=== PATIENT | male | born 1945 | race Caucasian/White ===

== ENCOUNTER → 2016-04-11 | Day surgery (SDC) | payer OTHER ==
[~2016-04-11] VITALS: Ht 177.8 cm; Wt 88.9 kg
[~2016-04-11] MED LIST: ACET1CAP18 PO; ACET500C PO; ACETAMINOPHEN 325MG/HYDROcodone 7.5MG/15ML UDC PO PRN; ALPR.25 PO; ALPR0.25 PO; AMPICILLIN/SULBAC 3 GM/NS 100 ML IV PRN; ANDR1.62 TOPICAL; ASPI-110 PO; ASPI325T PO; CENTTAB PO; CEPH-460 PO; DO NOT ADM ANY ANTICOAGULANT DRUGS XX PRN; HYDR1ELX PO; INSULIN HUMAN REGULAR 1,000 UNITS/10 ML VIAL SQ PRN; LACTATED RINGER'S 1000 ML INJ 1,000 ML IV SCH; LACTATED RINGER'S 1000 ML IV SCH; LEVA500T PO; LORA1TAB12 PO; METOPROLOL TARTRATE 25 MG TAB PO PRN; MULT-6 PO; NEXI20CA PO; OMEP10CA PO; ONDANSETRON HCL 4 MG/2 ML VIAL IV PUSH ONE; OXYC1CAP PO; PRIL10CA PO; PROC10TA PO; PROP10TA6 PO; PROPOFOL 200 MG/20 ML AMP IV ONE; REST15CA PO; SODIUM CHLORID 0.9% 500 ML IV SCH; ZOFR4TAB PO; fentaNYL CITRATE 250 MCG/5 ML AMP ONE
[2016-04-11 06:30] VITALS: BP 138/81; PULSE 59; RESP 20; TEMP 98.1; O2SAT 99
[2016-04-11 10:00] VITALS: BP 149/86; PULSE 59; RESP 18; O2SAT 97
--- NOTE | 2016-04-11 14:00 | EKG ---
Date Performed: 04/11/2016 Time Performed: 06:53:33 PTAGE: 70 years EKG: Sinus rhythm NORMAL ECG Since PREVIOUS TRACING , no significant change noted PREVIOUS TRACIN03/10/2014 02.53 DOCTOR: Jerzy Pina Interpretating Date/Time 04/11/2016 13:56:46
--- NOTE | 2016-04-26 14:45 | MP ---
cc: VALERIE APRISI M.D. DATE OF SURGERY 04/11/[address] Valerie parisi PREOPERATIVE DIAGNOSIS Metastatic squamous cell carcinoma right neck. POSTOPERATIVE DIAGNOSIS Metastatic squamous cell carcinoma right neck. OPERATION PERFORMED Examination under anesthesia with direct laryngoscopy and biopsies of hypo and oropharynx. DESCRIPTION OF OPERATION The patient was taken to OR #6 and placed in the supine position. Following induction of general anesthesia and intubation, a shoulder roll and a Charles head drape and a dental guard were put in place. The oropharynx and oral cavity were examined visually and palpated bimanually. There was no evidence of gross lesions involving the aerodigestive tract. A direct laryngoscope was then advanced into the hypopharynx and the larynx was examined. There were no gross lesions in the larynx. Biopsies were obtained from the base of tongue bilaterally and also from the tonsil tissue bilaterally. A total of four biopsies were obtained. These were passed off the field separately labeled for their locations for histologic examination. The scope was then removed and the procedure was terminated. The patient was reversed from anesthesia and taken to recovery in good condition. There were no complications. Blood loss was 10 mL. MD RADHA Read/ABDIRIZAK /10:53 AM /2:45 PM
--- NOTE | 2016-04-26 14:49 | MP ---
cc: VALERIE PARISI M.D. DATE OF SURGERY 04/11/[address] 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 OPERATION PERFORMED 1. Direct laryngoscopy with biopsies. 2. Needle aspiration biopsy of left neck mass x2. INDICATIONS As documented in the history and physical. DESCRIPTION OF OPERATION The patient was taken to OR #8 and placed in the supine position. Following induction of general anesthesia and intubation, a shoulder roll, a Charles head drape were put in place in a dental guard was put in place. The oral cavity was examined visually and was palpated bimanually in the floor of mouth, soft palate, hard palate and oropharynx area. There were no masses detected. Then using a direct laryngoscope, the hypopharynx and larynx were examined. There was no evidence of mucosal lesions involving these areas. The scope was then removed and then using a 10 mL syringe and 22 gauge needle, fine needle aspiration biopsies were obtained from the mass in the left neck. These were dried on slides and then were submitted for histologic examination. The procedure was terminated. The patient was reversed from anesthesia and taken to recovery in good condition. There were no complications. Blood loss less than 5 mL. MD RADHA Read/ABDIRIZAK /11:20 AM /2:47 PM
== END | disposition home or self-care (01) ==
LOC: HSDC 06:05
PROVIDERS: ATTEND Otolaryngology
DX: C10.9 Malignant neoplasm of oropharynx, unspecified (principal); Z01.810 Encounter for preprocedural cardiovascular examination
CPT/HCPCS: 00320; 31535; 88304; 88305; 88341; 93005; J0295; J2405; J3010; J7120

== ENCOUNTER → 2016-04-12 | Outpatient (CLI) | payer OTHER ==
[~2016-04-12] MED LIST changes: -ACETAMINOPHEN 325MG/HYDROcodone 7.5MG/15ML UDC PO PRN; -AMPICILLIN/SULBAC 3 GM/NS 100 ML IV PRN; -DO NOT ADM ANY ANTICOAGULANT DRUGS XX PRN; -INSULIN HUMAN REGULAR 1,000 UNITS/10 ML VIAL SQ PRN; -LACTATED RINGER'S 1000 ML INJ 1,000 ML IV SCH; -LACTATED RINGER'S 1000 ML IV SCH; -METOPROLOL TARTRATE 25 MG TAB PO PRN; -ONDANSETRON HCL 4 MG/2 ML VIAL IV PUSH ONE; -PROPOFOL 200 MG/20 ML AMP IV ONE; -SODIUM CHLORID 0.9% 500 ML IV SCH; -fentaNYL CITRATE 250 MCG/5 ML AMP ONE
[2016-04-12 13:35] LABS: AUTOMATED NEUTROPHIL # 5.6 TH/MM3 (1.8-7.7); BASOPHIL % 0.4 % (0.0-2.0); EOSINOPHIL # 0.1 TH/MM3 (0-0.4); HEMATOCRIT 40.4 % (39.0-51.0); HEMO FLAGS DIFF FINAL; LYMPH % 23.8 % (9.0-44.0); MEAN CELL VOLUME 89.3 FL (80.0-100.0); MEAN CORPUSCULAR HEMOGLOBIN 31.1 PG (27.0-34.0); MEAN CORPUSCULAR HGB CONC 34.8 % (32.0-36.0); MONO % 7.4 % (0.0-8.0); NEUT % 67.4 % (16.0-70.0); PLATELET COUNT 253 TH/MM3 (150-450); RED BLOOD COUNT 4.53 MIL/MM3 (4.50-5.90); RED CELL DISTRIBUTION WIDTH 12.4 % (11.6-17.2); WHITE BLOOD COUNT 8.3 TH/MM3 (4.0-11.0)
[2016-04-12 13:43] LABS: PROTHROMBIN TIME - PATIENT 10.9 SEC (9.8-11.6)
== END ==
LOC: CLAB 13:16
PROVIDERS: ATTEND Internal Medicine Gastroenterology
DX: Z12.11 Encounter for screening for malignant neoplasm of colon (principal)
CPT/HCPCS: 36415; 85025; 85610

== ENCOUNTER → 2016-04-14 | Outpatient (CLI) | payer OTHER ==
[~2016-04-14] VITALS: Ht 179.1 cm; Wt 87.0 kg
[~2016-04-14] MED LIST changes: +HYDROmorphone HCL PF 2 MG/ML VIAL IV PUSH ONE; +INSULIN HUMAN REGULAR 1,000 UNITS/10 ML VIAL SQ PRN; +LACTATED RINGER'S 1000 ML IV SCH; +METOPROLOL TARTRATE 25 MG TAB PO PRN; +PROPOFOL 200 MG/20 ML AMP IV ONE; +SODIUM CHLORID 0.9% 500 ML IV SCH; +ceFAZolin INJ 1,000 MG VIAL IV ONE
[2016-04-14 09:58] VITALS: BP 149/82; PULSE 78; RESP 16; TEMP 98.3; O2SAT 97
[2016-04-14 12:50] VITALS: BP 135/68; PULSE 83; RESP 16; O2SAT 99
--- NOTE | 2016-04-15 21:25 | MR ---
cc: FROYLAN VINES DATE: 04/14/2016. PROCEDURES PERFORMED: 1. Upper endoscopy with PEG-tube placement. 2. Colonoscopy. DATE OF : 1945. ENDOSCOPIST: Froylan Vines MD. INDICATIONS FOR THE PROCEDURE: Patient with a recent diagnosis of squamous cancer with a lymph node biopsy in the right neck region. Apparently he has a tonsillar lesion as well that was discovered. 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 Upper endoscopy is being performed for reevaluation of Chavez's and also for PEG-tube placement for anticipated radiation therapy and anticipated difficulty with swallowing in the future. In addition, the patient also will undergo colonoscopy screening for apparent average risk. Photographs were taken. Biopsies were taken. PREMEDICATION: Administered by anesthesiology. MONITORING: Monitoring was accomplished with pulse oximeter, EKG, and blood pressure monitor. DESCRIPTION OF THE PROCEDURE IN DETAIL: After informed consent was obtained and the procedure risks and benefits were explained including the risk of bleeding, sepsis, perforation, risks of anesthesia, the patient was placed in the supine position. The video endoscope was inserted per the oral route into the esophagus easily. There was some slight posterior pharyngeal erythema. The esophagus itself through the main body appeared to be normal. At the distal EG junction, there was evidence of very short segment Chavez's esophagus without any mass lesions. This was biopsied several times. There was a very small hiatal hernia. The scope was passed into the stomach. On the retroflexed view, I could not appreciate any masses. The patient did have scattered small gastric polyps noted proximally and in the gastric body, the largest one was about 6 mm and it was successfully snared by cold technique and retrieved. The antrum was free of pathology. The pylorus was patent. The first, second and third portion of the duodenum were unremarkable. Using nursing assistance, the patient's abdominal area was prepped with Betadine in a sterile fashion. An adequate location for PEG-tube placement was seen by transillumination of the light source and palpation. Lidocaine 1% was injected through the site and a small incision was made and a PEG-tube was successfully placed in the usual fashion using the appropriate PEG-tube application device. Post insertion, the interior bumper appeared to be in good position in the mid gastric body. The scope was then gradually withdrawn and the patient was repositioned and colonoscopy was performed. The video colonoscope was inserted in the rectum and passed to the cecum in the usual fashion with abdominal pressure. Preparation was excellent. Colon extraction time was greater than 6 minutes. The cecum was unremarkable. At the ileocecal valve, there appeared to be perhaps a small raised area and perhaps a small polyp and this was biopsied off and removed. In the transverse colon, another small polyp 4 to 5 mm was biopsied off and removed. Diverticulosis was noted in the descending sigmoid colon of a mild to moderate degree. In the sigmoid colon two further polyps, both 4 mm, were also biopsied off and removed. In the rectum, the scope was retroflexed and small internal hemorrhoids were noted. The patient tolerated procedure well. He was sent to the recovery room in stable condition. IMPRESSION: 1. 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 2. Small hiatal hernia. 3. Gastric polyp removed by snare technique. 4. Status post the successful PEG-tube placement as outlined above. 5. Colonoscopy was performed to the cecum with removal of small polyps by biopsy technique as outlined above. 6. Diverticulosis was also noted in the descending sigmoid colon. 7. Small internal hemorrhoids were also seen. PLAN: I have discussed the findings with the patient's . The patient can resume oral feedings. I have recommended continuation of his antibiotic ointment of choice to the PEG-tube site and flushing this daily, keeping the area clean. Recommend follow up biopsies of the esophagus and of the colonic polyps removed. If these are adenomatous polyps, recommend repeat colonoscopy in five years. Continue acid suppressive therapy. MD SYLVIA Seals/PETER /12:24 PM /9:12 PM
== END ==
LOC: HEND 09:14
PROVIDERS: ATTEND Internal Medicine Gastroenterology
DX: Z12.11 Encounter for screening for malignant neoplasm of colon (principal); Z86.010 Personal history of colon polyps; D12.3 Benign neoplasm of transverse colon; K63.5 Polyp of colon; K57.30 Diverticulosis of large intestine without perforation or abscess without bleeding; K64.8 Other hemorrhoids; R13.10 Dysphagia, unspecified; C01 Malignant neoplasm of base of tongue; K22.710 Barrett's esophagus with low grade dysplasia; K31.7 Polyp of stomach and duodenum; K44.9 Diaphragmatic hernia without obstruction or gangrene
CPT/HCPCS: 00810; 43239; 43246; 45380; 88305; 88312; J0690; J1170

== ENCOUNTER 2016-04-18 08:22 | Day surgery (SDC) | payer OTHER ==
[~2016-04-18] VITALS: Ht 180.3 cm; Wt 86.8 kg
[~2016-04-18 08:22] MED LIST changes: -ACET1CAP18 PO; -ALPR.25 PO; -ANDR1.62 TOPICAL; -ASPI-110 PO; -CENTTAB PO; -CEPH-460 PO; -HYDR1ELX PO; -HYDROmorphone HCL PF 2 MG/ML VIAL IV PUSH ONE; -INSULIN HUMAN REGULAR 1,000 UNITS/10 ML VIAL SQ PRN; -LACTATED RINGER'S 1000 ML IV SCH; -LEVA500T PO; -LORA1TAB12 PO; -METOPROLOL TARTRATE 25 MG TAB PO PRN; -NEXI20CA PO; -OXYC1CAP PO; -PRIL10CA PO; -PROC10TA PO; -PROPOFOL 200 MG/20 ML AMP IV ONE; -SODIUM CHLORID 0.9% 500 ML IV SCH; -ZOFR4TAB PO; -ceFAZolin INJ 1,000 MG VIAL IV ONE
[2016-04-18 08:40] VITALS: BP 160/92; PULSE 70; RESP 20; TEMP 97.5; O2SAT 97
[2016-04-18] MEDS ORDERED: CHLORHEXIDINE GLUCONATE 2 % 1 PACK (2 CLOTHS) TOPICAL SCH (08:45)
[2016-04-18] MEDS ORDERED: POVIDONE IODINE 5% (ANTISEPSIS KIT) 4 APPLICATIONS EACH NARE SCH (08:45)
[2016-04-18] MEDS ORDERED: VANCOMYCIN 1000 MG/NS 250 ML - implanted port/tunneled catheter IV SCH ×2 (08:45)
[2016-04-18] MEDS ORDERED: ceFAZolin 2 GM PREMIX 50 ML - implanted port/tunneled catheter insertion IV SCH (08:45)
[2016-04-18] MEDS ORDERED: ALPR.25 PO (08:46)
[2016-04-18] MEDS ORDERED: ANDR1.62 TOPICAL (08:46)
[2016-04-18] MEDS ORDERED: CENTTAB PO (08:46)
[2016-04-18] MEDS ORDERED: ACET1CAP18 PO (08:46)
[2016-04-18] MEDS ORDERED: REST15CA PO (08:46)
[2016-04-18] MEDS ORDERED: MIDAZOLAM HCL 5 MG/5 ML VIAL ONE (09:30)
[2016-04-18] MEDS ORDERED: fentaNYL CITRATE 250 MCG/5 ML AMP ONE (09:30)
[2016-04-18] MEDS ORDERED: LIDOCAINE 1%/EPINEPHrine 1:100,000 SOLN 20 ML VIAL ONE (09:41)
[2016-04-18] MEDS ORDERED: SODIUM CHLORIDE 0.9% FLUSH 5 ML FLUSH IVF PRN (11:15)
--- NOTE | 2016-04-18 11:16 | PD.RAD ---
Post Procedure Progress Note Pre Procedure Diagnosis: (1) Mass of right side of neck Post Procedure Diagnosis: (1) Mass of right side of neck Procedure Date: Apr 18, 2016 Supervising Radiologist: Vel Douglas Proceduralist/Assist: Samira Pavon, RT(R)(), Regine Angel RT(R)() Anesthesia: Conscious Sedation Plan of Activity Patient to Unit: [facility] Patient Condition: Good See PACS Report for procedural detail/treatment Central Venous Access Device Procedure 1 Right Internal Jugular Infusaport Placement single lumen Vel Douglas MD Apr 18, 2016 11:16
--- NOTE | 2016-04-18 11:46 | RADRPT ---
EXAM DATE/TIME: 04/18/2016 09:59 [facility] COMPARISON: No previous studies available for comparison. INDICATIONS : Patient is in need of placement of an Infusaport for chemotherapy treatment of squamous cell head and neck cancer. MEDICAL HISTORY : History of right neck mass, HTN, tachycardia, tremors, kidney stones, Chavez's esophagus, CVA, heart valve disease, irregular heartbeat. SURGICAL HISTORY : History of tongue biopsy, right neck biopsy, colonoscopy, cholecystectomy, tonsillectomy. ENCOUNTER: Initial ACUITY: 3 weeks PAIN SCORE: 0/10 FLUORO TIME: 0.5 minutes SEDATION TIME: 30 minutes ACCESS: Right internal jugular vein SEDATION: 1.) 4 midazolam (Versed) IV 2.) 200 fentanyl (Sublimaze) IV Prophylactic antibiotics were administered with appropriate pre-procedure timing. Vancomycin within 2 hours of procedure, Ancef (or alternative) within 1 hour of procedure. DEVICE: 1. 8 Belgian Bard Power Port PROCEDURE : 1. Continuous pulse oximetry and EKG monitoring. 2. Intravenous conscious sedation. 3. Ultrasound guidance for venous access. 4. Fluoroscopic guided implantable central venous port placement. The patient was placed supine. The neck was prepped in sterile fashion. Full sterile technique was u sed, including cap, mask, sterile gloves and gown, and a large sterile sheet. Hand hygiene and 2% ch lorhexidine Betadine was utilized per protocol for cutaneous antisepsis with appropriate dry time for site. The skin and subcutaneous tissues were infiltrated with local anesthetic solution. Under direct ultrasound guidance, central venous access was accomplished in the targeted vessel. The ultrasound images depicting access guidance were stored and saved to PACS for permanent record. A s ubcutaneous pocket was created using blunt dissection. The port was introduced to the pocket. The c atheter tubing was fed through a subcutaneous tunnel to the venotomy site. The catheter tubing was c ut to a suitable length and then was introduced through a valved Peel-Away sheath and positioned with catheter tubing tip at the cavo-atrial junction level. The pocket incision was closed with subcutic ular Vicryl suture. Steri-Strips were applied. The port was flushed and locked with heparin solutio n per protocol. Sterile dressing was applied to the site. The patient tolerated the procedure well. Conscious sedation was performed with the prescribed dosages and duration as above. The patient mario alberto ated the procedure well and there were no complications. EKG and oximetry remained stable throughout the procedure. The patient was sent to post anesthesia recovery in stable condition. CONCLUSION: Uncomplicated ultrasound and fluoroscopic guided implanted central venous port catheter placement as described in detail above. An 8 Belgian Power port was placed. Vel Douglas MD on April 18, 2016 at 11:45 Board Certified Radiologist. This report was verified electronically.
[2016-04-18 12:00] VITALS: BP 113/65; PULSE 66; RESP 18; O2SAT 95
[2016-04-18 12:30] VITALS: BP 119/62; PULSE 63; RESP 18; O2SAT 95
== END 2016-04-18 12:55 | disposition home or self-care (01) ==
LOC: HROP 08:22 → HRIP 08:23 → HROP 12:55
PROVIDERS: ATTEND Internal Medicine Hematology & Oncology
DX: Z45.2 Encounter for adjustment and management of vascular access device (principal); R22.1 Localized swelling, mass and lump, neck; I10 Essential (primary) hypertension; Z86.73 Personal history of transient ischemic attack (TIA), and cerebral infarction without residual deficits; Z87.442 Personal history of urinary calculi
CPT/HCPCS: 36561; 76937; 77001; 99152; 99153; C1788; J0690; J1642; J2250; J3010; J3370; J7050

== ENCOUNTER 2016-06-15 15:10 | Emergency (ER) | payer OTHER ==
[~2016-06-15] VITALS: Ht 180.3 cm; Wt 80.0 kg
[~2016-06-15 15:10] MED LIST changes: +ACET1CAP18 PO; +ALPR.25 PO; +ANDR1.62 TOPICAL; +CENTTAB PO
[2016-06-15 15:12] VITALS: BP 129/76; PULSE 90; RESP 20; TEMP 98.2; O2SAT 99
--- NOTE | 2016-06-15 15:27 | PD ---
HPI Chief Complaint: Flank/Kidney Pain Time Seen by Provider: 15:27 Travel History International Travel<30 days: No Contact w/Intl Traveler<30days: No Traveled to known affect area: No History of Present Illness HPI 71-year-old male presents to emergency Department with 10 day history of left lower back and flank pain. Patient has significant history of tonsillar and throat cancer being followed by oncology. Patient reports a fever 101 4 days prior to this visit, treated with Levaquin by his oncologist. Patient continues to have worsening pain in this left flank area, and was requested to come here for further evaluation and treatment. Patient has not had a fever since starting the Levaquin 4 days prior to this. Patient takes nothing by mouth, only through a G-tube. He states no changes in his urine output or burning with urination. He does denies changes in his bowels. Patient has no other acute complaints. Patient has not taken any pain medication today, although he has oxycodone at home. Patient is not requesting pain medication at this time. He states his pain is 7/10 and worse with movement. Patient is currently under the care of [facility], and currently undergoing chemotherapy. He is allergic to latex and Wellbutrin. The patient has a port in his right upper chest pain PFSH Past Medical History Anxiety: Yes Depression: Yes Heart Rhythm Problems: Yes (TACHYCARDIA ) Cancer: Yes (METASTACTIC SQUAMOUS BASE OF TONGUE WITH PAPO TO LYMPH NODES) Cardiovascular Problems: Yes (ARRHYTHMIA, VALVE REGURGETATION) High Cholesterol: Yes Chemotherapy: Yes (NECK CANCER/ LAST SUNDAY CHEMO TX) Diabetes: No Diminished Hearing: No Endocrine: No Gastrointestinal Disorders: Yes (CHOLECYSTITIS) GERD: Yes Genitourinary: No Hepatitis: No Hiatal Hernia: Yes Hypertension: Yes Immune Disorder: No Kidney Stones: Yes Musculoskeletal: Yes (BILATERAL KNEE INJURIES/PAIN) Neurologic: Yes (TREMORS NOW RESOLVED) Psychiatric: Yes (DEPRESSION) Reproductive: No Respiratory: Yes (CHRONIC DRY COUGH) Immunizations Current: Yes Thyroid Disease: No Past Surgical History Abdominal Surgery: No AICD: No Cardiac Surgery: No Cholecystectomy: Yes Ear Surgery: No Endocrine Surgery: No Eye Surgery: No Genitourinary Surgery: No Gynecologic Surgery: No Joint Replacement: No Oral Surgery: Yes (TONSILLECTOMY) Pacemaker: No Thoracic Surgery: No Social History Alcohol Use: Yes (SOCIAL ) Tobacco Use: No Substance Use: No Allergies-Medications (Allergen,Severity, Reaction): Coded Allergies: Spiriva (Verified Allergy, Severe, Shortness of Breath, 06/15/16) Wellbutrin (Verified Allergy, Severe, Seizures, 06/15/16) Latex (Verified Allergy, Mild, EDEMA REDNESS HANDS, 06/15/16) Reported Meds & Prescriptions Reported Meds & Active Scripts Active Reported Tylenol (Acetaminophen) 325 Mg Cap 650 Mg PO Q6H PRN Xanax (Alprazolam) 0.25 Mg Tab 0.25 Mg PO Q4H PRN Restoril (Temazepam) 15 Mg Cap 15 Mg PO HS PRN Androgel Pump Topical (Testosterone) 1.62 % Gel 20.25 Mg TOPICAL DAILY Centrum Silver (Multiple Vitamins W/ Minerals) 1 Tab 1 Tab PO DAILY Omeprazole 10 Mg Cap 10 Mg PO DAILY Acetaminophen 500 Mg Cap 500 Mg PO Q4-6H PRN Centrum (Multiple Vitamins W/ Minerals) 1 Tab 1 Tab PO DAILY Restoril (Temazepam) 15 Mg Cap 15-30 Mg PO HS PRN Propranolol (Propranolol HCl) 10 Mg Tab 5 Mg PO BID Aspirin 325 Mg Tab 325 Mg PO DAILY Alprazolam 0.25 Mg Tab 0.25 Mg PO HS PRN Review of Systems Except as stated in HPI: all other systems reviewed are Neg General / Constitutional: No: Fever Eyes: No: Visual changes HENT: No: Headaches Cardiovascular: No: Chest Pain or Discomfort Respiratory: No: Shortness of Breath Gastrointestinal: No: Abdominal Pain Genitourinary: Positive: Flank Pain, No: Dysuria Musculoskeletal: No: Pain Skin: No Rash Neurologic: No: Weakness Psychiatric: No: Depression Endocrine: No: Polydipsia Hematologic/Lymphatic: No: Easy Bruising Physical Exam Narrative GENERAL: Patient appears in mild distress. SKIN: Warm and dry. Normal color. Normal turgor. HEAD: Atraumatic. Normocephalic. EYES: Pupils equal and round. No scleral icterus. No injection or drainage. ENT: No nasal bleeding or discharge. Mucous membranes pink and moist. Pharynx is clear. NECK: Trachea midline. Neck is supple. CARDIOVASCULAR: Regular rate and rhythm. RESPIRATORY: No accessory muscle use. Clear to auscultation. Breath sounds equal bilaterally. GASTROINTESTINAL: Abdomen soft, non-tender, nondistended. Hepatic and splenic margins not palpable. MUSCULOSKELETAL: Extremities without clubbing, cyanosis, or edema. No obvious deformities. NEUROLOGICAL: Awake and alert. No obvious cranial nerve deficits. Motor grossly within normal limits. Five out of 5 muscle strength in the arms and legs. Normal speech. PSYCHIATRIC: Appropriate mood and affect; insight and judgment normal. Data Data Last Documented VS Vital Signs Date Time Temp Pulse Resp B/P Pulse Ox O2 Delivery O2 Flow Rate FiO2 06/15/16 17:35 80 16 124/67 97 Room Air 06/15/16 15:12 98.2 Orders Complete Blood Count With Diff (06/15/16 15:31) Comprehensive Metabolic Panel (06/15/16 15:31) Lipase (06/15/16 15:31) Prothrombin Time / Inr (Pt) (06/15/16 15:31) Act Partial Throm Time (Ptt) (06/15/16 15:31) Urinalysis - C+S If Indicated (06/15/16 15:31) Ct Abd/Pel W/O Iv Contrast (06/15/16 15:31) Iv Access Insert/Monitor (06/15/16 15:31) Ecg Monitoring (06/15/16 15:31) Oximetry (06/15/16 15:31) NPO (06/15/16 15:31) Sodium Chlor 0.9% 1000 Ml Inj (Ns 1000 M (06/15/16 15:31) Sodium Chloride 0.9% Flush (Ns Flush) (06/15/16 15:45) Labs Laboratory Tests Test 06/15/16 06/15/16 15:55 16:55 White Blood Count 2.2 TH/MM3 Red Blood Count 3.55 MIL/MM3 Hemoglobin 11.1 GM/DL Hematocrit 32.5 % Mean Corpuscular Volume 91.6 FL Mean Corpuscular Hemoglobin 31.4 PG Mean Corpuscular Hemoglobin 34.3 % Concent Red Cell Distribution Width 15.2 % Platelet Count 286 TH/MM3 Mean Platelet Volume 6.1 FL Neutrophils (%) (Auto) 75.6 % Lymphocytes (%) (Auto) 7.7 % Monocytes (%) (Auto) 16.2 % Eosinophils (%) (Auto) 0.2 % Basophils (%) (Auto) 0.3 % Neutrophils # (Auto) 1.7 TH/MM3 Lymphocytes # (Auto) 0.2 TH/MM3 Monocytes # (Auto) 0.4 TH/MM3 Eosinophils # (Auto) 0.0 TH/MM3 Basophils # (Auto) 0.0 TH/MM3 CBC Comment DIFF FINAL Differential Comment Sodium Level 139 MEQ/L Potassium Level 4.1 MEQ/L Chloride Level 102 MEQ/L Carbon Dioxide Level 30.3 MEQ/L Anion Gap 7 MEQ/L Blood Urea Nitrogen 18 MG/DL Creatinine 1.08 MG/DL Estimat Glomerular Filtration 67 ML/MIN Rate Random Glucose 102 MG/DL Calcium Level 9.5 MG/DL Total Bilirubin 0.5 MG/DL Aspartate Amino Transf 14 U/L (AST/SGOT) Alanine Aminotransferase 26 U/L (ALT/SGPT) Alkaline Phosphatase 74 U/L Total Protein 7.1 GM/DL Albumin 3.5 GM/DL Lipase 137 U/L Urine Color YELLOW Urine Turbidity CLEAR Urine pH 6.5 Urine Specific Home 1.023 Urine Protein TRACE mg/dL Urine Glucose (UA) NEG mg/dL Urine Ketones NEG mg/dL Urine Occult Blood NEG Urine Nitrite NEG Urine Bilirubin NEG Urine Urobilinogen LESS THAN 2.0 MG/DL Urine Leukocyte Esterase NEG Urine RBC LESS THAN 1 /hpf Urine WBC 1 /hpf Urine Squamous Epithelial <1 /hpf Cells Urine Hyaline Casts 1 /lpf Urine Mucus MANY /lpf Microscopic Urinalysis Comment CULT NOT INDICATED MDM Medical Decision Making Medical Screen Exam Complete: Yes Emergency Medical Condition: Yes Differential Diagnosis Left flank pain. Lumbar pain. Muscle skeletal pain. Renal colic. Possible kidney stone. Possible urinary tract infection. Narrative Course Patient is medically stable at time of exam. Patient's port is accessed and labs are obtained including CBC, CMP, lipase, PT PTT and INR, and urinalysis. CT of the abdomen and pelvis is ordered without contrast. Patient is not requesting pain medication at this time. CT shows gastrostomy tube in good position. Radiologist does not see any specific etiology for the patient's flank pain. There are no stones identified. CBC shows white blood cell count of 2.2, RBC is 3.55, hemoglobin of 11.1, hematocrit of 32.5. This is consistent with the patient's chemotherapy history. Urinalysis shows no acute process. CMP was within normal limits. Patient is felt stable to be discharged home. Results were discussed with the patient and he feels reassured. Patient is discharged home and can take his home pain medication as needed. Patient will follow with his oncologist and primary care physician as needed. Diagnosis Primary Impression: Lumbago without sciatica Qualified Code: M54.5 - Acute left-sided low back pain without sciatica Referrals: Oncologist Primary Care Physician Patient Instructions: Acute Low Back Pain (ED), General Instructions, Lower Back Exercises (ED) Additional Instructions: CT shows gastrostomy tube in good position. Radiologist does not see any specific etiology for the patient's flank pain. There are no stones identified. CBC shows white blood cell count of 2.2, RBC is 3.55, hemoglobin of 11.1, hematocrit of 32.5. This is consistent with the patient's chemotherapy history. Urinalysis shows no acute process. CMP was within normal limits. Patient is felt stable to be discharged home. Results were discussed with the patient and he feels reassured. Patient is discharged home and can take his home pain medication as needed. Patient will follow with his oncologist and primary care physician as needed. Med/Other Pt SpecificInfo: No Change to Meds Disposition: 01 DISCHARGE HOME Condition: Stable [place] Jun 15, 2016 15:27
[2016-06-15] MEDS ORDERED: SODIUM CHLOR 0.9% 1000 ML INJ 1,000 ML IV SCH (15:31)
[2016-06-15 15:43] VITALS: O2SAT 99
[2016-06-15] MEDS ORDERED: SODIUM CHLORIDE 0.9% FLUSH 5 ML FLUSH IVF PRN (15:45)
--- NOTE | 2016-06-15 16:29 | RADRPT ---
EXAM DATE/TIME: 06/15/2016 16:02 [facility] COMPARISON: No previous studies available for comparison. INDICATIONS : Left lower flank pain with history of G-tube and throat cancer. ORAL CONTRAST: No oral contrast ingested. RADIATION DOSE: 8.21 CTDIvol (mGy) MEDICAL HISTORY : Cardiovascular disease. Hypertension. Renal calculi. Throat cancer SURGICAL HISTORY : Cholecystectomy. G-tube ENCOUNTER: Initial ACUITY: 1 day PAIN SCALE: 4/10 LOCATION: Left flank TECHNIQUE: Volumetric scanning of the abdomen and pelvis was performed. Using automated exposure control and adjustment of the mA and/or kV according to patient size, radiation dose was kept as low as reasonably achievable to obtain optimal diagnostic quality images. FINDINGS: The lung bases are clear. G-tube is noted. The liver and spleen are unremarkable. Gal lstone is seen in the gallbladder. Pancreas appears normal. Right and left kidneys are grossly unremarkable. Region of the cecum and terminal ileum are unremarkable. In the pelvis, there are diverticula in the sigmoid colon without diverticulitis. Bladder is unremarkable. CONCLUSION: 1. Gastrostomy tube in good position. 2. I do not see etiology for the patient's flank pain. There are no stones identified. Zev Pollock MD FACR on June 15, 2016 at 16:22 Board Certified Radiologist. This report was verified electronically.
[2016-06-15 16:42] LABS: AUTOMATED NEUTROPHIL # 1.7 TH/MM3 (1.8-7.7); BASOPHIL % 0.3 % (0.0-2.0); EOSINOPHIL % 0.2 % (0.0-4.0); HEMATOCRIT 32.5 % (39.0-51.0); HEMO FLAGS DIFF FINAL; LYMPH % 7.7 % (9.0-44.0); LYMPHOCYTE # 0.2 TH/MM3 (1.0-4.8); MEAN CELL VOLUME 91.6 FL (80.0-100.0); MEAN CORPUSCULAR HEMOGLOBIN 31.4 PG (27.0-34.0); MEAN CORPUSCULAR HGB CONC 34.3 % (32.0-36.0); MONO % 16.2 % (0.0-8.0); NEUT % 75.6 % (16.0-70.0); PLATELET COUNT 286 TH/MM3 (150-450); RED BLOOD COUNT 3.55 MIL/MM3 (4.50-5.90); RED CELL DISTRIBUTION WIDTH 15.2 % (11.6-17.2); WHITE BLOOD COUNT 2.2 TH/MM3 (4.0-11.0)
[2016-06-15 17:00] LABS: ANION GAP 7 MEQ/L (5-15); AST (GOT) 14 U/L (15-37); BICARBONATE 30.3 MEQ/L (21.0-32.0); BLOOD UREA NITROGEN 18 MG/DL (7-18); CHLORIDE 102 MEQ/L (98-107); GLOMERULAR FILTRATION RATE 67 ML/MIN (>89); POTASSIUM 4.1 MEQ/L (3.5-5.1); SODIUM (NA) 139 MEQ/L (136-145)
[2016-06-15 17:07] LABS: ALKALINE PHOSPHATASE 74 U/L (45-117); ALT (GPT) 26 U/L (12-78); TOTAL BILIRUBIN ADULT 0.5 MG/DL (0.2-1.0)
[2016-06-15 17:22] LABS: BLOOD, URINE NEG (NEG); COMMENT (UR) CULT NOT INDICATED; CULTURE IF INDICATED CULT NOT INDICATED; GLUCOSE,URINE NEG (NEG); HYALINE CAST, URINE 1 /lpf (RARE); KETONE, URINE NEG (NEG); MUCUS URINE MANY /lpf (OCC); NITRITE,URINE NEG (NEG); PH, URINE 6.5 (5.0-8.5); SQUAMOUS EPITHELIAL CELL URINE <1 /hpf (0-5); URINE COLOR YELLOW (YELLW/STRAW)
[2016-06-15 17:35] VITALS: BP 124/67; PULSE 80; RESP 16; O2SAT 97
[2016-06-15 17:55] LABS: APTT (PATIENT) 27.5 SEC (24.3-30.1); INTERNATIONAL NORMALIZED RATIO 1.1 RATIO; PROTHROMBIN TIME - PATIENT 11.8 SEC (9.8-11.6)
[2016-06-15] MEDS ORDERED: ANDR1.62 TOPICAL (18:10)
[2016-06-15] MEDS ORDERED: ASPI-110 PO (18:10)
[2016-06-15] MEDS ORDERED: NEXI20CA PO (18:12)
[2016-06-15] MEDS ORDERED: LORA1TAB12 PO (18:12)
[2016-06-15] MEDS ORDERED: LEVA500T PO (18:12)
[2016-06-15] MEDS ORDERED: ZOFR4TAB PO (18:14)
[2016-06-15] MEDS ORDERED: OXYC1CAP PO (18:14)
[2016-06-15] MEDS ORDERED: PROC10TA PO (18:23)
== END 2016-06-15 18:00 | disposition home or self-care (01) ==
LOC: NEPE 15:10
DX: M54.5 Low back pain (principal); R00.0 Tachycardia, unspecified; E78.00 Pure hypercholesterolemia, unspecified; I10 Essential (primary) hypertension; K21.9 Gastro-esophageal reflux disease without esophagitis; Z87.442 Personal history of urinary calculi
CPT/HCPCS: 74176; 80053; 81001; 83690; 85025; 85610; 85730; 96360; 96361; 99284; J1642; J7030

== ENCOUNTER 2016-07-02 22:24 | Emergency (ER) | payer OTHER ==
[~2016-07-02] VITALS: Ht 177.8 cm; Wt 78.0 kg
[~2016-07-02 22:24] MED LIST changes: -ACET1CAP18 PO; -ALPR.25 PO; -ALPR0.25 PO; +ASPI-110 PO; -ASPI325T PO; +LEVA500T PO; +LORA1TAB12 PO; -MULT-6 PO; +NEXI20CA PO; -OMEP10CA PO; +OXYC1CAP PO; +PROC10TA PO; +ZOFR4TAB PO
[2016-07-02 22:26] VITALS: BP 133/74; PULSE 120; RESP 16; TEMP 99.5; O2SAT 98
[2016-07-02 22:44] VITALS: O2SAT 97
[2016-07-02] MEDS ORDERED: SODIUM CHLOR 0.9% 1000 ML INJ 1,000 ML IV ONE ×2 (22:45→23:00)
--- NOTE | 2016-07-02 22:46 | PD ---
HPI Chief Complaint: Fever Time Seen by Provider: 22:42 Travel History International Travel<30 days: No Contact w/Intl Traveler<30days: No Traveled to known affect area: No History of Present Illness HPI 71-year-old male presents to the emergency department for evaluation of fever for approximately 24 hours. 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 His oncologist is Dr. Rosado. He is undergoing chemotherapy and radiation. His chemotherapy was on Sunday his last radiation was on . The patient also reports constipation for 5-6 days, but is not having any symptoms from this. Patient has a PEG tube as well as a port to the right upper chest. The patient does report a cough, but no chest pain. No abdominal pain. He reports nausea, but no vomiting or diarrhea. The patient states his fever at 2100 was 101. The patient denies any urinary symptoms. Denies any other complaints at this time. PFSH Past Medical History Anxiety: Yes Depression: Yes Heart Rhythm Problems: Yes (TACHYCARDIA ) Cancer: Yes (METASTACTIC SQUAMOUS BASE OF TONGUE WITH PAPO TO LYMPH NODES) Cardiovascular Problems: Yes (ARRHYTHMIA, VALVE REGURGETATION) High Cholesterol: Yes Chemotherapy: Yes (NECK CANCER/ LAST SUNDAY CHEMO TX) Diabetes: No Diminished Hearing: No Endocrine: No Gastrointestinal Disorders: Yes (GERD, BARRETTS ESOPHAGUS) GERD: Yes Genitourinary: No Hepatitis: No Hiatal Hernia: Yes Hypertension: Yes Immune Disorder: No Kidney Stones: Yes Musculoskeletal: Yes (BILATERAL KNEE INJURIES/PAIN) Neurologic: Yes (TREMORS NOW RESOLVED) Psychiatric: Yes (DEPRESSION) Reproductive: No Respiratory: Yes (CHRONIC DRY COUGH) Immunizations Current: Yes Radiation Therapy: Yes (LAST TX 06/15/16) Thyroid Disease: No Past Surgical History Abdominal Surgery: No AICD: No Cardiac Surgery: No Cholecystectomy: Yes Ear Surgery: No Endocrine Surgery: No Eye Surgery: No Genitourinary Surgery: No Gynecologic Surgery: No Joint Replacement: No Oral Surgery: Yes (TONSILLECTOMY) Pacemaker: No Thoracic Surgery: No Other Surgery: Yes (PORT/PEG TUBE PLACEMENT) Social History Alcohol Use: No Tobacco Use: No Substance Use: No Allergies-Medications (Allergen,Severity, Reaction): Coded Allergies: Spiriva (Verified Allergy, Severe, Shortness of Breath, 07/02/16) Wellbutrin (Verified Allergy, Severe, Seizures, 07/02/16) Latex (Verified Allergy, Mild, EDEMA REDNESS HANDS, 07/02/16) Reported Meds & Prescriptions Reported Meds & Active Scripts Active Keflex (Cephalexin) 500 Mg Cap 500 Mg PO Q8H 7 Days Reported Lortab Liq (Hydrocodone-Acetaminophen Liq) 10-300 Mg/15 Ml Elix 15 Ml PO Q4HR PRN Prochlorperazine Maleate 10 Mg Tab 10 Mg PO Q6H PRN Zofran (Ondansetron HCl) 4 Mg Tab 4 Mg PO Q4HR PRN Nexium (Esomeprazole DR) 20 Mg Capdr 20 Mg PO BID Lorazepam 1 Mg Tab 1 Mg PO DAILY PRN Androgel Pump Topical (Testosterone) 1.62 % Gel 20.25 Mg TOPICAL DAILY Aspirin 81 (Aspirin) 81 Mg Tabdr 81 Mg PO DAILY Restoril (Temazepam) 15 Mg Cap 15 Mg PO HS PRN Centrum Silver (Multiple Vitamins W/ Minerals) 1 Tab 1 Tab PO DAILY Propranolol (Propranolol HCl) 10 Mg Tab 5 Mg PO BID Review of Systems Except as stated in HPI: all other systems reviewed are Neg Physical Exam Narrative GENERAL: Well-nourished, well-developed elderly male patient, ambulatory. Temperature 99.5. SKIN: Focused skin assessment warm/dry. Patient has port to the right upper chest. HEAD: Normocephalic. Atraumatic. EYES: No scleral icterus. No injection or drainage. NECK: Supple, trachea midline. No JVD or lymphadenopathy. CARDIOVASCULAR: Regular rhythm without murmurs, gallops, or rubs. Patient is tachycardic heart rate in the low 100s. RESPIRATORY: Breath sounds equal bilaterally. No accessory muscle use. Lungs sounds are clear to auscultation. GASTROINTESTINAL: Abdomen soft, non-tender, nondistended. PEG tube noted. MUSCULOSKELETAL: No cyanosis, or edema. BACK: Nontender without obvious deformity. No CVA tenderness. Data Data Last Documented VS Vital Signs Date Time Temp Pulse Resp B/P Pulse Ox O2 Delivery O2 Flow Rate FiO2 07/03/16 01:02 99.7 97 18 123/61 97 Room Air Orders Complete Blood Count With Diff (07/02/16 22:41) Comprehensive Metabolic Panel (07/02/16 22:41) Lactic Acid Sepsis Protocol (07/02/16 22:41) Magnesium (Mg) (07/02/16 22:41) Urinalysis - C+S If Indicated (07/02/16 22:41) Influenzae A/B Antigen (07/02/16 22:41) Blood Culture (07/02/16 22:41) Chest, Single Ap (07/02/16 22:41) Blood Glucose (07/02/16 22:41) Ecg Monitoring (07/02/16 22:41) Iv Access Insert/Monitor (07/02/16 22:41) Oximetry (07/02/16 22:41) Oxygen Administration (07/02/16 22:41) Sodium Chlor 0.9% 1000 Ml Inj (Ns 1000 M (07/02/16 22:45) Cefepime Inj (Maxipime Inj) (07/02/16 23:00) Sodium Chlor 0.9% 1000 Ml Inj (Ns 1000 M (07/02/16 23:00) Cath For Specimen (07/02/16 23:56) Heparin Central Flush (Heparin Central F (07/03/16 01:15) Sodium Chloride 0.9% Flush (Ns Flush) (07/03/16 01:15) Heparin Central Flush (Heparin Central F (07/03/16 01:15) Labs Laboratory Tests Test 07/02/16 07/03/16 23:05 00:16 White Blood Count 2.7 TH/MM3 Red Blood Count 2.71 MIL/MM3 Hemoglobin 8.8 GM/DL Hematocrit 25.0 % Mean Corpuscular Volume 92.1 FL Mean Corpuscular Hemoglobin 32.6 PG Mean Corpuscular Hemoglobin 35.4 % Concent Red Cell Distribution Width 16.6 % Platelet Count 258 TH/MM3 Mean Platelet Volume 6.3 FL Neutrophils (%) (Auto) 74.3 % Lymphocytes (%) (Auto) 9.1 % Monocytes (%) (Auto) 15.4 % Eosinophils (%) (Auto) 0.7 % Basophils (%) (Auto) 0.5 % Neutrophils # (Auto) 2.0 TH/MM3 Lymphocytes # (Auto) 0.2 TH/MM3 Monocytes # (Auto) 0.4 TH/MM3 Eosinophils # (Auto) 0.0 TH/MM3 Basophils # (Auto) 0.0 TH/MM3 CBC Comment DIFF FINAL Differential Comment Sodium Level 136 MEQ/L Potassium Level 3.7 MEQ/L Chloride Level 101 MEQ/L Carbon Dioxide Level 27.2 MEQ/L Anion Gap 8 MEQ/L Blood Urea Nitrogen 16 MG/DL Creatinine 1.02 MG/DL Estimat Glomerular Filtration 72 ML/MIN Rate Random Glucose 142 MG/DL Lactic Acid Level 1.4 mmol/L Calcium Level 9.1 MG/DL Magnesium Level 2.1 MG/DL Total Bilirubin 0.4 MG/DL Aspartate Amino Transf 12 U/L (AST/SGOT) Alanine Aminotransferase 20 U/L (ALT/SGPT) Alkaline Phosphatase 78 U/L Total Protein 7.1 GM/DL Albumin 3.5 GM/DL Urine Color YELLOW Urine Turbidity CLEAR Urine pH 6.0 Urine Specific [place] 1.018 Urine Protein TRACE mg/dL Urine Glucose (UA) NEG mg/dL Urine Ketones NEG mg/dL Urine Occult Blood NEG Urine Nitrite NEG Urine Bilirubin NEG Urine Urobilinogen LESS THAN 2.0 MG/DL Urine Leukocyte Esterase NEG Urine RBC LESS THAN 1 /hpf Urine WBC LESS THAN 1 /hpf Urine Hyaline Casts 1 /lpf Urine Mucus FEW /lpf Microscopic Urinalysis Comment CATH-CULT NOT IND MDM Medical Decision Making Medical Screen Exam Complete: Yes Emergency Medical Condition: Yes Medical Record Reviewed: Yes Differential Diagnosis Pneumonia versus UTI versus sepsis versus dehydration Narrative Course 71-year-old male with a history of squamous cell cancer undergoing chemotherapy and radiation presents to the emergency department for evaluation of fever for approximately 24 hours. He is unconscious Dr. Willis. CBC, CMP, magnesium, lactic acid, UA, and influenza, blood cultures 2, chest x-ray are ordered and pending. Patient is given normal saline 1 L IV bolus. Attending physician, Dr. Jones, will resume care and disposition of patient. Scripts Cephalexin (Keflex)500 Mg [id number] Mg PO Q8H 7 Days Ref 0 Prov:Angela Jones MD 07/03/16 Aurea Iyer Jul 02, 2016 22:45
[2016-07-02] MEDS ORDERED: HYDR1ELX PO (22:47)
[2016-07-02] MEDS ORDERED: CEFEPIME INJ 2,000 MG in SODIUM CHLORIDE 0.9% INJ 100 ML IV ONE (23:00)
--- NOTE | 2016-07-02 23:05 | RADRPT ---
EXAM DATE/TIME: 07/02/2016 22:37 [facility] COMPARISON: CHEST SINGLE AP, March 20, 2016, 14:31. INDICATIONS : Fever. Chemo patient. MEDICAL HISTORY : Carcinoma, pharyngeal. SURGICAL HISTORY : Cholecystectomy. Infusaport ENCOUNTER: Initial ACUITY: 2 days PAIN SCORE: 6/10 LOCATION: Bilateral chest FINDINGS: A single view of the chest demonstrates the lungs to be symmetrically aerated without evidence of mas s, infiltrate or effusion. The cardiomediastinal contours are unremarkable. Osseous structures are intact. A right-sided power port is noted. CONCLUSION: No acute disease. Zhou Charles Jr., MD on July 02, 2016 at 22:58 Board Certified Radiologist. This report was verified electronically.
[2016-07-02 23:17] LABS: BASOPHIL % 0.5 % (0.0-2.0); EOSINOPHIL % 0.7 % (0.0-4.0); HEMO FLAGS DIFF FINAL; LYMPH % 9.1 % (9.0-44.0); LYMPHOCYTE # 0.2 TH/MM3 (1.0-4.8); MEAN CELL VOLUME 92.1 FL (80.0-100.0); MEAN CORPUSCULAR HEMOGLOBIN 32.6 PG (27.0-34.0); MEAN CORPUSCULAR HGB CONC 35.4 % (32.0-36.0); MONO % 15.4 % (0.0-8.0); NEUT % 74.3 % (16.0-70.0); PLATELET COUNT 258 TH/MM3 (150-450); RED BLOOD COUNT 2.71 MIL/MM3 (4.50-5.90); RED CELL DISTRIBUTION WIDTH 16.6 % (11.6-17.2); WHITE BLOOD COUNT 2.7 TH/MM3 (4.0-11.0)
[2016-07-02 23:50] LABS: ALT (GPT) 20 U/L (12-78); ANION GAP 8 MEQ/L (5-15); AST (GOT) 12 U/L (15-37); BICARBONATE 27.2 MEQ/L (21.0-32.0); BLOOD UREA NITROGEN 16 MG/DL (7-18); CHLORIDE 101 MEQ/L (98-107); GLOMERULAR FILTRATION RATE 72 ML/MIN (>89); MAGNESIUM 2.1 MG/DL (1.5-2.5); POTASSIUM 3.7 MEQ/L (3.5-5.1); SODIUM (NA) 136 MEQ/L (136-145)
[2016-07-02 23:52] LABS: ALKALINE PHOSPHATASE 78 U/L (45-117); TOTAL BILIRUBIN ADULT 0.4 MG/DL (0.2-1.0)
[2016-07-03 00:36] LABS: BLOOD, URINE NEG (NEG); GLUCOSE,URINE NEG (NEG); HYALINE CAST, URINE 1 /lpf (RARE); KETONE, URINE NEG (NEG); MUCUS URINE FEW /lpf (OCC); NITRITE,URINE NEG (NEG); URINE COLOR YELLOW (YELLW/STRAW)
--- NOTE | 2016-07-03 00:59 | PD ---
Data Data Last Documented VS Vital Signs Date Time Temp Pulse Resp B/P Pulse Ox O2 Delivery O2 Flow Rate FiO2 07/02/16 22:44 98 Room Air 07/02/16 22:26 99.5 120 16 133/74 Orders Complete Blood Count With Diff (07/02/16 22:41) Comprehensive Metabolic Panel (07/02/16 22:41) Lactic Acid Sepsis Protocol (07/02/16 22:41) Magnesium (Mg) (07/02/16 22:41) Urinalysis - C+S If Indicated (07/02/16 22:41) Influenzae A/B Antigen (07/02/16 22:41) Blood Culture (07/02/16 22:41) Chest, Single Ap (07/02/16 22:41) Blood Glucose (07/02/16 22:41) Ecg Monitoring (07/02/16 22:41) Iv Access Insert/Monitor (07/02/16 22:41) Oximetry (07/02/16 22:41) Oxygen Administration (07/02/16 22:41) Sodium Chlor 0.9% 1000 Ml Inj (Ns 1000 M (07/02/16 22:45) Cefepime Inj (Maxipime Inj) (07/02/16 23:00) Sodium Chlor 0.9% 1000 Ml Inj (Ns 1000 M (07/02/16 23:00) Cath For Specimen (07/02/16 23:56) Labs Laboratory Tests Test 07/02/16 07/03/16 23:05 00:16 White Blood Count 2.7 TH/MM3 Red Blood Count 2.71 MIL/MM3 Hemoglobin 8.8 GM/DL Hematocrit 25.0 % Mean Corpuscular Volume 92.1 FL Mean Corpuscular Hemoglobin 32.6 PG Mean Corpuscular Hemoglobin 35.4 % Concent Red Cell Distribution Width 16.6 % Platelet Count 258 TH/MM3 Mean Platelet Volume 6.3 FL Neutrophils (%) (Auto) 74.3 % Lymphocytes (%) (Auto) 9.1 % Monocytes (%) (Auto) 15.4 % Eosinophils (%) (Auto) 0.7 % Basophils (%) (Auto) 0.5 % Neutrophils # (Auto) 2.0 TH/MM3 Lymphocytes # (Auto) 0.2 TH/MM3 Monocytes # (Auto) 0.4 TH/MM3 Eosinophils # (Auto) 0.0 TH/MM3 Basophils # (Auto) 0.0 TH/MM3 CBC Comment DIFF FINAL Differential Comment Sodium Level 136 MEQ/L Potassium Level 3.7 MEQ/L Chloride Level 101 MEQ/L Carbon Dioxide Level 27.2 MEQ/L Anion Gap 8 MEQ/L Blood Urea Nitrogen 16 MG/DL Creatinine 1.02 MG/DL Estimat Glomerular Filtration 72 ML/MIN Rate Random Glucose 142 MG/DL Lactic Acid Level 1.4 mmol/L Calcium Level 9.1 MG/DL Magnesium Level 2.1 MG/DL Total Bilirubin 0.4 MG/DL Aspartate Amino Transf 12 U/L (AST/SGOT) Alanine Aminotransferase 20 U/L (ALT/SGPT) Alkaline Phosphatase 78 U/L Total Protein 7.1 GM/DL Albumin 3.5 GM/DL Urine Color YELLOW Urine Turbidity CLEAR Urine pH 6.0 Urine Specific [place] 1.018 Urine Protein TRACE mg/dL Urine Glucose (UA) NEG mg/dL Urine Ketones NEG mg/dL Urine Occult Blood NEG Urine Nitrite NEG Urine Bilirubin NEG Urine Urobilinogen LESS THAN 2.0 MG/DL Urine Leukocyte Esterase NEG Urine RBC LESS THAN 1 /hpf Urine WBC LESS THAN 1 /hpf Urine Hyaline Casts 1 /lpf Urine Mucus FEW /lpf Microscopic Urinalysis Comment CATH-CULT NOT IND MDM Supervised Visit with RYAN: Yes Narrative Course I, Dr. Jones, have reviewed the advance practice practioner's documentation and am in agreement, met with the patient face to face, made the diagnosis, and the medical decision making was done by me. 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 Some cough, chronic per patient. Otherwise no localizing symptoms. Patient is well-appearing on exam, skin changes to the right neck from radiation therapy. Patient has been giving hydration through his G-tube, though is notably tachycardic on exam. Breath sounds clear bilaterally, abdomen benign. Differential includes sepsis, bacteremia, pneumonia, influenza, UTI, port infection, neutropenic fever. Laboratory workup notable for leukopenia but no neutropenia, anemia. Patient is given a dose of cefepime. He has an appointment tomorrow with his oncologist. I spoke with Dr. Veloz, who is on-call for [facility] and is agreeable with disposition to home with outpatient follow-up tomorrow. Diagnosis Primary Impression: Fever Qualified Code: R50.9 - Fever, unspecified fever cause Additional Impression: Tachycardia Referrals: Devorah Willis MD 1 day Additional Instruction: Follow-up with Dr. Rosado tomorrow as scheduled. Return to the ER for the warning to discuss. Med/Other Pt SpecificInfo: No Change to Meds Disposition: 01 DISCHARGE HOME Condition: Stable Angela Jones MD Jul 03, 2016 00:59
[2016-07-03 01:00] LABS: COMMENT (UR) CATH-CULT NOT IND; CULTURE IF INDICATED CATH CULTURE NOT IND
[2016-07-03 01:02] VITALS: BP 123/61; PULSE 97; RESP 18; TEMP 99.7; O2SAT 97
[2016-07-03] MEDS ORDERED: CEPH-460 PO (01:02)
[2016-07-03] MEDS ORDERED: SODIUM CHLORIDE 0.9% FLUSH 10 ML FLUSH IVF PRN (01:15)
== END 2016-07-03 01:41 | disposition home or self-care (01) ==
LOC: NEPE 22:24
DX: R50.9 Fever, unspecified (principal); R00.0 Tachycardia, unspecified; E78.00 Pure hypercholesterolemia, unspecified; K22.70 Barrett's esophagus without dysplasia; K21.9 Gastro-esophageal reflux disease without esophagitis; I10 Essential (primary) hypertension; Z87.442 Personal history of urinary calculi
CPT/HCPCS: 71010; 80053; 81001; 83605; 83735; 85025; 87040; 87804; 96361; 96365; 99285; J0692; J1642; J7030

== ENCOUNTER → 2016-08-21 | Outpatient (CLI) | payer OTHER ==
[~2016-08-21] MED LIST changes: -ACET500C PO; +CEPH-460 PO; +HYDR1ELX PO; -LEVA500T PO; -OXYC1CAP PO
--- NOTE | 2016-08-21 11:40 | RADRPT ---
EXAM DATE/TIME: 08/21/2016 00:00 [facility] COMPARISON: No previous studies available for comparison. INDICATIONS : Dysphagia. FLUORO TIME: 1.5 minutes IMAGE COUNT: 0 CONTRAST: Dose as prescribed by speech pathologist. MEDICAL HISTORY : tongue cancer, status post recent radiation therapy, Chavez's esophagus, hiatal hernia SURGICAL HISTORY : peg tube ENCOUNTER: Initial ACUITY: 2 months PAIN SCORE: 2/10 LOCATION: Bilateral neck FINDINGS: A modified barium swallow was performed with speech pathology. Patient was given a variety of liquids to swallow. For a full detailed report, see report by the speech pathologist. CONCLUSION: Modified barium swallow performed in conjunction with speech pathology. Souleymane Mcnair MD on August 21, 2016 at 11:38 Board Certified Radiologist. This report was verified electronically.
== END ==
LOC: HRAD 08:44
PROVIDERS: ATTEND Internal Medicine Hematology & Oncology
DX: R13.10 Dysphagia, unspecified (principal); Z92.3 Personal history of irradiation; Z92.21 Personal history of antineoplastic chemotherapy
CPT/HCPCS: 74230; 92611; G8996; G8997; G8998

== ENCOUNTER → 2016-09-22 | Outpatient (CLI) | payer OTHER ==
[2016-09-22 12:24] LABS: AUTOMATED NEUTROPHIL # 3.4 TH/MM3 (1.8-7.7); BASOPHIL % 0.3 % (0.0-2.0); EOSINOPHIL # 0.1 TH/MM3 (0-0.4); EOSINOPHIL % 1.7 % (0.0-4.0); HEMATOCRIT 40.5 % (39.0-51.0); HEMO FLAGS DIFF FINAL; LYMPHOCYTE # 0.4 TH/MM3 (1.0-4.8); MEAN CELL VOLUME 94.6 FL (80.0-100.0); MEAN CORPUSCULAR HEMOGLOBIN 33.2 PG (27.0-34.0); MEAN CORPUSCULAR HGB CONC 35.1 % (32.0-36.0); MONO % 7.7 % (0.0-8.0); NEUT % 80.3 % (16.0-70.0); PLATELET COUNT 235 TH/MM3 (150-450); RED BLOOD COUNT 4.28 MIL/MM3 (4.50-5.90); WHITE BLOOD COUNT 4.3 TH/MM3 (4.0-11.0)
[2016-09-22 12:28] LABS: BLOOD, URINE NEG (NEG); COMMENT (UR) CULT NOT INDICATED; CULTURE IF INDICATED CULT NOT INDICATED; GLUCOSE,URINE NEG (NEG); HYALINE CAST, URINE 1 /lpf (RARE); KETONE, URINE NEG (NEG); MUCUS URINE FEW /lpf (OCC); NITRITE,URINE NEG (NEG); PH, URINE 6.5 (5.0-8.5); URINE COLOR YELLOW (YELLW/STRAW)
[2016-09-22 12:46] LABS: MICRO ALBUMIN RANDOM URINE RAW 11.3 MG/L (0.0-30.0)
[2016-09-22 13:07] LABS: ANION GAP 9 MEQ/L (5-15); BICARBONATE 28.2 MEQ/L (21.0-32.0); BLOOD UREA NITROGEN 25 MG/DL (7-18); CHLORIDE 102 MEQ/L (98-107); GLOMERULAR FILTRATION RATE 70 ML/MIN (>89); GLUCOSE,FASTING 100 MG/DL (74-99); SODIUM (NA) 139 MEQ/L (136-145)
[2016-09-22 13:34] LABS: ALKALINE PHOSPHATASE 89 U/L (45-117); ALT (GPT) 24 U/L (12-78); AST (GOT) 16 U/L (15-37); TOTAL BILIRUBIN ADULT 0.5 MG/DL (0.2-1.0)
[2016-09-26 21:44] LABS: MITOGEN MINUS NIL RESULT >10.00 IU/mL (()); NIL RESULT 0.02 IU/mL (()); QUANTIFERON TB GOLD RESULT Negative (Negative)
== END ==
LOC: CLAB 11:42
PROVIDERS: ATTEND Family Medicine
DX: Z00.00 Encounter for general adult medical examination without abnormal findings (principal)
CPT/HCPCS: 36415; 80053; 80061; 80074; 81001; 82043; 82306; 82607; 82746; 83540; 84146; 84153; 84402; 84403; 84443; 84550; 85025; 86480; 86703

== ENCOUNTER → 2016-12-06 | Outpatient (CLI) | payer OTHER ==
[~2016-12-06] VITALS: Ht 177.8 cm; Wt 78.8 kg
[~2016-12-06] MED LIST changes: +BACL10TA PO; -CENTTAB PO; +CHLORHEXIDINE GLUCONATE 2 % 1 PACK (2 CLOTHS) TOPICAL PRN; +INSULIN HUMAN REGULAR 1,000 UNITS/10 ML VIAL SQ PRN; +LACTATED RINGER'S 1000 ML IV PRN; +METOPROLOL TARTRATE 25 MG TAB PO PRN; +MULT1TAB PO; +POVIDONE IODINE 5% (ANTISEPSIS KIT) 4 APPLICATIONS EACH NARE PRN; +PROPOFOL 200 MG/20 ML AMP IV PUSH ONE; +SODIUM CHLORID 0.9% 500 ML IV PRN
[2016-12-06 16:15] VITALS: BP 109/66; PULSE 70; RESP 18; TEMP 97.6; O2SAT 99
--- NOTE | 2016-12-07 08:31 | MR ---
cc: WILLIS MILLER M.D. DATE: 12/06/2016 DATE OF : 1945 PROCEDURE PERFORMED: Upper endoscopy with dilatation of the esophagus. INDICATION FOR PROCEDURE: Patient with history of previous radiation therapy. He has an existing PEG tube and he has been having dysphagia post-radiation therapy. PHOTOGRAPHS AND BIOPSIES: Photographs were taken. No biopsies. PREMEDICATIONS: Administered by Anesthesiology. MONITORING: Monitoring was accomplished with pulse oximeter, EKG and blood pressure monitor. PROCEDURE NOTE: After informed consent was obtained and the procedure, risks and benefits were explained, including the risks of bleeding, sepsis, perforation and risk of anesthesia, the patient was placed in the left lateral position. The video endoscope was inserted per the oral route and in the proximal cricopharyngeal area a tight stricture was seen. We could not pass the scope through this area. Subsequently we passed a pediatric scope to the site but once again we were met with resistance. Therefore, we passed a soft wire through the opening of the stricture gently and passed it distally a few cm and the scope was removed and a Savary-Melissa dilator 8 mm was successfully passed over the guidewire with mild resistance and the scope was reintroduced and the area appeared to be more dilated. Subsequent to this we passed pediatric scope to the distal esophagus where a slightly irregular Z-line was noted from the patient's previous documented Chavez's esophagus. The patient had a hiatal hernia. The patient's existing PEG tube was noted anchored well in the anterior gastric wall. In the retroflex view, the cardia and fundus were unremarkable. The stomach was otherwise unremarkable. The pylorus was patent. The first, second and third portion of the duodenum were unremarkable as well. A Savary-Melissa guidewire was then passed to the distal antrum. The scope was removed and Savary-Melissa dilators, 10 mm and 12.8 mm respectively were passed over the guidewire with mild resistance. The patient tolerated the procedures well. Postprocedure vital signs were stable. He was sent to the recovery room in stable condition. 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 This was dilated up to 12.8 mm. PLAN: 1. We will add Carafate therapy. 2. The patient can be advanced to a puree type solids if tolerated. 3. We will follow up clinically as an outpatient. 4. Consider repeat endoscopy with dilatation at a later date. MD SYLVIA Seals/ASIA /3:29 PM /8:07 AM
== END ==
LOC: HEND 12:13
PROVIDERS: ATTEND Internal Medicine Gastroenterology
DX: R13.10 Dysphagia, unspecified (principal); Z93.1 Gastrostomy status; Z92.3 Personal history of irradiation; K22.9 Disease of esophagus, unspecified; K44.9 Diaphragmatic hernia without obstruction or gangrene
CPT/HCPCS: 00740; 43248; C1769; J3010; J7120

== ENCOUNTER → 2017-02-26 | Outpatient (CLI) | payer OTHER ==
[~2017-02-26] VITALS: Ht 180.3 cm; Wt 78.7 kg
[~2017-02-26] MED LIST changes: +ALPR.25 PO; -ANDR1.62 TOPICAL; -ASPI-110 PO; +ASPI-183 PO; +ASPI1TAB57 PO; +BACITRACIN TOP OINT 15 GM TUBE ONE; -CEPH-460 PO; -HYDR1ELX PO; -LORA1TAB12 PO; -MULT1TAB PO; -PROC10TA PO; -PROPOFOL 200 MG/20 ML AMP IV PUSH ONE; +SILVER NITR/POTASSIUM NITRATE APPLICATORS TOPICAL ONE; -ZOFR4TAB PO
--- NOTE | 2017-02-26 17:43 | MR ---
cc: WILLIS MILLER DATE 02/26/2017 DATE OF 1945 INDICATION FOR PROCEDURE Patient with known tonsillar cancer with proximal esophageal stricture, dysphagia and nutritional problems. He has an existing feeding tube in place that needs to be changed as well. Upper endoscopy is being performed for repeat dilatation of the proximal cervical stricture due to perhaps radiation therapy. Photographs were taken. Biopsies taken. Premedication administered by anesthesiology. Monitoring was ____, pulse oximeter, EKG, blood pressure monitor. PROCEDURE NOTE After informed consent was obtained and procedure risks and benefits were explained including the risks of bleeding, risk of perforation, risk of anesthesia the patient was placed in the left lateral position. The video scope was inserted per the oral route. There was some deformity noted in the cricopharyngeal laryngeal area from his previous intervention surgery and radiation therapy. The scope was easily passed and in the proximal esophagus there was a smooth stricture noted which would not allow passage of the scope initially but with gentle pressure this was traversed easily. At the EG junction there was evidence of a short segment Chavez's esophagus. This was biopsied x2. A hiatus hernia was traversed. The stomach was entered. The gastric mucosa was normal throughout. In the retroflex view the cardia and fundus were unremarkable. The pylorus was patent. First, second and third portion of the duodenum were unremarkable. A wire was then placed in the distal antrum and the scope was withdrawn and Savary-Melissa dilators 11, 12.8, and 14 mm, respectively were passed over the guidewire. The last was met with some resistance. Reintroduction of the scope revealed this area to be fairly dilated. Minimal heme was noted. The patient was then placed on his back and in the prone position in the existing feeding tube was noted to be deteriorating therefore this was extracted with pressure and a 20-[place]oz[place] replacement gastric feeding tube was placed through the orifice and in the skin and the position was verified with reintroduction of the scope and the inner balloon was dilated with 20 mL of saline. The area around the PEG tube site was cauterized briefly with silver nitrate. Some minimal oozing was noted when the old tube was extracted but this was controlled with silver nitrate. The area was dressed with bacitracin and a sterile dressing. The patient tolerated the procedure well. He was sent to recovery room in stable condition. IMPRESSION 1. 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 2. Short segment Chavez's. 3. Hiatal hernia. 4. The patient's existing feeding tube was extracted and replaced with 20-[place]oz[place] replacement tube. PLAN Continue feedings as needed for the feeding tube. The patient will attempt oral intake as well post dilatation. We will follow up clinically as an outpatient. Repeat endoscopy can be performed as needed as well. MD SYLVIA Seals/CARYN /4:36 PM /5:23 PM
[2017-02-26 17:50] VITALS: BP 112/69; PULSE 97; RESP 20; TEMP 97.6; O2SAT 96
== END ==
LOC: HSDC 13:10
PROVIDERS: ATTEND Internal Medicine Gastroenterology
DX: K22.2 Esophageal obstruction (principal); R13.10 Dysphagia, unspecified; C09.9 Malignant neoplasm of tonsil, unspecified; K22.70 Barrett's esophagus without dysplasia; K44.9 Diaphragmatic hernia without obstruction or gangrene; Z43.1 Encounter for attention to gastrostomy
CPT/HCPCS: 00740; 43239; 43246; 43248; 88305; C1769; J7120

== ENCOUNTER → 2017-06-07 | Outpatient (CLI) | payer OTHER ==
[~2017-06-07] VITALS: Ht 180.3 cm; Wt 77.9 kg
[~2017-06-07] MED LIST changes: -ASPI1TAB57 PO; -BACITRACIN TOP OINT 15 GM TUBE ONE; -BACL10TA PO; +DO NOT ADM ANY ANTICOAGULANT DRUGS PRN; -INSULIN HUMAN REGULAR 1,000 UNITS/10 ML VIAL SQ PRN; +PROPOFOL 200 MG/20 ML AMP IV ONE; -SILVER NITR/POTASSIUM NITRATE APPLICATORS TOPICAL ONE; +SODIUM CHLORIDE 0.9% 20 ML VIAL ONE
--- NOTE | 2017-06-07 13:13 | MR ---
cc: Froylan Vines MD 06/07/2017 PROCEDURE PERFORMED: Upper endoscopy INDICATIONS FOR PROCEDURE: Evaluation of a prior history of dysphagia and radiation induced esophageal stricturing and narrowing. He has a history of oral cancer in the past. The patient also has an existing feeding tube, but the patient has been able to tolerate all solids and he has requested removal of the tube at this time. Photographs were taken. Biopsies were taken. PREMEDICATIONS: Administered by anesthesiology. MONITORING: Monitoring was accomplished with pulse oximeter, EKG and blood pressure monitor. PROCEDURE NOTE: After informed consent was obtained and the procedure, risks and benefits were explained, including the risks of bleeding, sepsis and perforation and risk of anesthesia, the patient was placed in the left lateral position. The video endoscope was inserted per the oral route easily to the EG junction. There was slight narrowing noted to the EG junction, slight resistance to passage of the scope. He had a hiatal hernia noted. He had a short segment Chavez's noted as well at the EG junction. This was biopsied several times. The stomach was otherwise unremarkable in a retroflexed view. A hiatal hernia was noted. Otherwise, the endoscopic evaluation of the stomach was normal. The duodenum was unremarkable as well. An inflated balloon from the G-tube that was present and in existence was noted. This was filled with fluid. A wire was then placed in the distal antrum and a Savary-Melissa dilator 15 mm was passed over the wire with modest to mild resistance. This was then removed and the gastric feeding tube balloon was deflated and the fluid was removed about 15 cc and the gastric feeding tube was easily removed. The area was cleansed and dressed in the abdominal wall. The patient tolerated the procedure well. No immediate complications were noted. IMPRESSION: 1. 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 2. Mild narrowing of the EG junction. Dilation was performed using a 15 mm Savary-Melissa dilator. 3. Hiatal hernia. 4. Existing gastric feeding tube was easily removed after the inner balloon was deflated and the tube was extracted externally from the abdominal region. The stoma itself appeared to be stable. PLAN: Would continue local wound care to the PEG tube site daily, keep it clean. The patient is tolerating per orally fairly well. We will have him followup in 6 weeks or sooner if needed. Continue acid suppressive therapy. Followup biopsies taken today for Chavez's esophagus. MD SYLVIA Seals/PERI , 12:53 PM , 01:12 PM
--- NOTE | 2017-06-07 13:39 | EKG ---
Date Performed: 06/07/2017 Time Performed: 10:00:13 PTAGE: 72 years EKG: SINUS BRADYCARDIA BORDERLINE ECG PREVIOUS TRACING : 04/11/2016 06.53 No significant change from previous tracing noted. DOCTOR: Daron Davila Interpretating Date/Time 06/07/2017 13:38:25
[2017-06-07 14:06] VITALS: BP 112/70; PULSE 60; RESP 18; TEMP 97.3; O2SAT 100
== END ==
LOC: HSDC 09:26
PROVIDERS: ATTEND Internal Medicine Gastroenterology
DX: R13.10 Dysphagia, unspecified (principal); K22.2 Esophageal obstruction; K44.9 Diaphragmatic hernia without obstruction or gangrene; K22.70 Barrett's esophagus without dysplasia; R00.1 Bradycardia, unspecified
CPT/HCPCS: 00731; 43239; 43247; 43248; 88305; 93005; C1769; J7120

== ENCOUNTER → 2017-06-20 | Outpatient (CLI) | payer OTHER ==
[~2017-06-20] MED LIST changes: -CHLORHEXIDINE GLUCONATE 2 % 1 PACK (2 CLOTHS) TOPICAL PRN; -DO NOT ADM ANY ANTICOAGULANT DRUGS PRN; -LACTATED RINGER'S 1000 ML IV PRN; -METOPROLOL TARTRATE 25 MG TAB PO PRN; -POVIDONE IODINE 5% (ANTISEPSIS KIT) 4 APPLICATIONS EACH NARE PRN; -PROPOFOL 200 MG/20 ML AMP IV ONE; -SODIUM CHLORID 0.9% 500 ML IV PRN; -SODIUM CHLORIDE 0.9% 20 ML VIAL ONE
[2017-06-20 12:46] LABS: ALBUMIN 4.3 GM/DL (3.4-5.0); DIRECT BILIRUBIN ADULT 0.1 MG/DL (0.0-0.2)
[2017-06-20 12:48] LABS: CHOLESTEROL/ HDL RATIO 3.35 RATIO; HDL CHOLESTEROL 49.8 MG/DL (40.0-60.0); INDIRECT BILIRUBIN 0.5 MG/DL (0.0-0.8); TOTAL BILIRUBIN ADULT 0.6 MG/DL (0.2-1.0); TOTAL PROTEIN 7.7 GM/DL (6.4-8.2)
== END ==
LOC: CLAB 11:59
PROVIDERS: ATTEND Internal Medicine Interventional Cardiology
DX: E78.2 Mixed hyperlipidemia (principal); I47.1 Supraventricular tachycardia; Z79.899 Other long term (current) drug therapy
CPT/HCPCS: 36415; 80061; 80076; 82550